=== PATIENT | male | born 1950 | race Caucasian/White ===

== ENCOUNTER → 2017-08-11 | Outpatient (CLI) | payer OTHER | END | disposition home or self-care (01) | LOC: PETCFH 09:41 | PROVIDERS: ATTEND Internal Medicine Hematology & Oncology | DX: C15.5 Malignant neoplasm of lower third of esophagus (principal); N28.1 Cyst of kidney, acquired | CPT/HCPCS: 78815; A9552 ==

== ENCOUNTER → 2017-08-16 | Outpatient (CLI) | payer OTHER | END | disposition home or self-care (01) | LOC: ROC 07-16 08:35 | PROVIDERS: ATTEND Radiology Radiation Oncology | DX: C15.5 Malignant neoplasm of lower third of esophagus (principal) | CPT/HCPCS: 99214; G0463 ==

== ENCOUNTER → 2017-10-19 | Outpatient (CLI) | payer OTHER | LOC: ROC 08:17 | PROVIDERS: ATTEND Radiology Radiation Oncology | DX: Z02.9 Encounter for administrative examinations, unspecified (principal) ==